=== PATIENT | female | born 1960 | race Caucasian/White ===

== ENCOUNTER 2019-02-26 07:28 | Day surgery (SDC) | payer OTHER ==
[~2019-02-26] VITALS: Ht 175.3 cm; Wt 81.2 kg
[2019-02-26] MEDS ORDERED: SERT100 (07:57)
== END 2019-02-26 09:53 | disposition home or self-care (01) ==
LOC: ORSCSDS 07:28
DX: Z12.11 Encounter for screening for malignant neoplasm of colon (principal); K62.1 Rectal polyp; K57.30 Diverticulosis of large intestine without perforation or abscess without bleeding
CPT/HCPCS: 88305; J2704; J7120

== ENCOUNTER → 2020-07-03 | Outpatient (CLI) | payer OTHER ==
[~2020-07-03] MED LIST: SERT100
== END | disposition home or self-care (01) ==
LOC: LAB SHORT 16:44 → LAB 16:44
DX: R05 Cough (principal); Z20.828 Contact with and (suspected) exposure to other viral communicable diseases
CPT/HCPCS: U0003